=== PATIENT | male | born 1965 | race Caucasian/White ===

== ENCOUNTER 2016-08-10 18:50 | Inpatient (IN) | payer OTHER ==
[2016-08-10] MEDS ORDERED: Potassium Chlor TAB* 20 MEQ TAB.ER PO ONE (19:18)
[2016-08-10] MEDS ORDERED: KCL 20 MEQ/100 ML IVPREMIX* 20 MEQ/100 ML BAG IV ONE (19:20)
[2016-08-10] MEDS ORDERED: NS 0.9% 1000 ML* 1,000 ML IV ONE (19:21)
[2016-08-10] MEDS ORDERED: Acetaminophen TAB* 325 MG PO ONE (19:49)
[2016-08-10] MEDS ORDERED: Acetaminophen TAB* 325 MG ONE (19:52)
[2016-08-10 20:13] LABS: Magnesium 2.2 mg/dL (1.9-2.7)
[2016-08-10] MEDS ORDERED: Cyclobenzaprine TAB* 10 MG PO PRN (20:18)
[2016-08-10] MEDS ORDERED: Ibuprofen TAB* 800 MG PO PRN (20:18)
[2016-08-10 20:19] LABS: Troponin I 0.07 ng/mL (<0.04)
[2016-08-10] MEDS ORDERED: Heparin DRIP 25,000 UNITS(*) 25,000 UNITS/500 ML BAG IV SCH (20:30)
--- NOTE | 2016-08-10 20:33 | ED ---
La Suggs Erika, scribed for Cindy Hilario MD on 08/10/16 at 1935 . HPI Chest Pain - HPI Summary HPI Summary: Patient is a 51-year-old male presenting to the ED with a CC of chest pain. Patient reports that he has had chest pain intermittently for the past 2-3 days. he describes the pain as a pressure, and reports that it will be present for 2-3 minutes, and will then fully resolve. Pain is worse today. Associated symptoms include SOB, and this afternoon, patient developed a headache. Pt was seen at [facility] today and was sent to [facility] ED because his troponin, 0.07 today, was higher than that of a troponin drawn 3 years ago when he had similar symptoms. He also had an EKG done at [facility] today, which showed T wave inversions in the anterior lateral leads with infrequent PVCs. T wave inversions were new compared to an EKG done 09/2013. At [facility], his CBC was WNL. He had a slightly elevated BUN of 31, and a creatinine of 1.7. His potassium was slightly low at 3.0. AT 16:40, Pt was bradycardic at 45 bpm. Pt was given 4 ASA and hydralazine at [facility]. He had a chemical stress test 3 years ago. Hx HTN - takes clonidine. Hx pre-diabetes. Pt denies Hx hyperlipidemia. FHx - denies cardiac disease before the age of 56. Pt's father has a pacemaker. Denies FHx cardiac stents. Pt works at the [employer], and lives alone. He denies smoking, drinking, or illicit drug use. PCP Dr. Beaulieu. - History of Current Complaint Hx Obtained From: Patient, Medical Records - from [facility] Onset/Duration: Started Days Ago, Atraumatic, Still Present Timing: Intermittent Current Severity: Moderate Character: Pressure/Squeezing Associated Signs and Symptoms: Positive: Headaches, Shortness of Breath - Allergy/Home Medications Allergies/Adverse Reactions: Allergies Allergy/AdvReac Type Severity Reaction Status Date / Time No Known Allergies Allergy Verified 08/10/16 19:08 Home Medications: Home Medications Benazepril (NF) [Lotensin (NF)] 40 mg PO DAILY 08/10/16 [History Confirmed 08/10] Cyclobenzaprine TAB* [Flexeril TAB*] 10 mg PO TID PRN 08/10/16 [History Confirmed 08/10/16] Hydrochlorothiazide TAB* [Hydrodiuril TAB*] 12.5 mg PO BID 08/10/16 [History Confirmed 08/10/16] Ibuprofen TAB* [Motrin TAB* 800 MG] 800 mg PO Q6H PRN 08/10/16 [History Confirmed 08/10/16] Metoprolol Tartrate TAB* [Lopressor TAB*] 100 mg PO BID 08/10/16 [History Confirmed 08/10/16] Potassium Chlor TAB* [Klor Con ER TAB*] 10 meq PO DAILY 08/10/16 [History Confirmed 08/10/16] cloNIDine TAB* [Catapres TAB*] 0.1 mg PO BID 08/10/16 [History Confirmed ] hydrALAZINE TAB* [Apresoline TAB*] 50 mg PO DAILY 08/10/16 [History Confirmed ] PMH/Surg Hx/FS Hx/Imm Hx Cardiovascular History: Reports: Hx Hypertension - Surgical History Surgery Procedure, Year, and Place: L HIP SX, TONSILECTOMY, CHOLECYSTECTOMY, LAP BAND, BACK SX - Family History Family History: No ND before age of 55 - Social History Lives: Alone Alcohol Use: None Hx Substance Use: No Substance Use Type: Reports: None Hx Tobacco Use: No Smoking Status (MU): Never Smoked Tobacco Review of Systems Positive: Chest Pain Positive: Shortness Of Breath Positive: Headache All Other Systems Reviewed And Are Negative: Yes Physical Exam Triage Information Reviewed: Yes Vital Signs On Initial Exam: Temp Pulse Resp BP Pulse Ox 98.3 F 59 18 186/104 100 08/10/16 18:50 08/10/16 18:50 08/10/16 18:50 08/10/16 18:50 08/10/16 18:50 Vital Signs Reviewed: Yes Skin: Positive: Warm, Skin Color Reflects Adequate Perfusion, Dry Eyes: Positive: EOMI, FERMÍN ENT: Positive: Pharynx normal, TMs normal Neck: Positive: Supple, Nontender Respiratory/Lung Sounds: Positive: Clear to Auscultation, Breath Sounds Present. Negative: Rales, Rhonchi, Wheezes Cardiovascular: Positive: Bradycardia - at 59 bpm on triage, Other - No gallops. Negative: Murmur, Rub Abdomen Description: Positive: Nontender, Soft, Other: - No rebound. Negative: Distended, Guarding Bowel Sounds: Positive: Present Musculoskeletal: Positive: Other - FRANCES, no edema Neurological: Positive: Sensory/Motor Intact, Alert, Oriented to Person Place, Time, Other - CN II-XII intact Psychiatric: Positive: Affect/Mood Appropriate Diagnostics - Vital Signs Vital Signs Temp Pulse Resp BP Pulse Ox 08/10/16 18:50 98.3 F 59 18 186/104 100 - Laboratory Lab Results: Lab Results 08/10/16 Range/Units 19:15 Magnesium 2.2 (1.9-2.7) mg/dL Troponin I 0.07 H* (<0.04) ng/mL Lab Statement: Any lab studies that have been ordered have been reviewed, and results considered in the medical decision making process. - EKG 19:13 Cardiac Rate: Bradycardia - at 52 bpm EKG Rhythm: Sinus Bradycardia ST Segment: Non-Specific Ectopy: None EKG Interpretation: LVH EKG Comparison: No Significant Change - from [facility] EKG today, although no PVCs on this current EKG Chest Pain Course/Dx - Course Course Of Treatment: pt with htn and intermittent cp trop is at .07 and stable admitted to hospitalist - Diagnoses Provider Diagnoses: Chest pain - Provider Notifications Discussed Care Of Patient With: Dr. Jeffries (hospitalist) at 19:12 - agrees to admit Discharge - Discharge Plan Condition: Stable Disposition: ADMITTED TO [facility] The documentation as recorded by the La carrero Erika accurately reflects the service I personally performed and the decisions made by me, Cindy Hilario MD.
[2016-08-10] MEDS ORDERED: Heparin VIAL(*) 5000 UNITS/ML VIAL (FIVE THOUSAND) IV SCH (21:00)
[2016-08-10 22:13] LABS: Hematocrit 44 % (42-52); Hemoglobin 14.4 g/dl (14.0-18.0); Mean Corpuscular HGB Conc 33 g/dl (31-36); Mean Corpuscular Hemoglobin 29 pg (27-31); Mean Corpuscular Volume 87 fL (80-94); Mean Platelet Volume 10 um3 (7.4-10.4); Red Blood Count 4.99 10^6/ul (4.0-5.4); Red Cell Distribution Width 14 % (10.5-15); White Blood Count 9.5 10^3/ul (3.5-10.8)
[2016-08-10 22:38] LABS: Troponin I 0.07 ng/mL (<0.04)
[2016-08-10] MEDS: Ondansetron INJ* 2 MG/ML VIAL IV PRN (23:10)
[2016-08-10] MEDS: Acetaminophen TAB* 325 MG PO PRN (23:10)
[2016-08-10] MEDS: cloNIDine TAB* 0.1 MG PO SCH (23:11)
[2016-08-10] MEDS: Hydrochlorothiazide TAB* 25 MG PO SCH (23:12)
--- NOTE | 2016-08-11 00:19 | HP ---
HISTORY AND PHYSICAL: DATE OF ADMISSION: 08/10/16 CHIEF COMPLAINT: Chest pressure. HISTORY OF PRESENT ILLNESS: The patient is a 51-year-old gentleman who said the last 2 days he has been having on and off chest pressure. It is not related to exertion. It will come and go and last for a few minutes. At its worst, it is 6/10 to 7/10 in severity. It is in the center of his chest. It does hurt more though with a deep breath. He has got nothing for it. He has no sweating with it. He does have some shortness of breath and he says the shortness of breath is secondary to the pain he has been taking a deep breath. He went to his PCP today, where he had an EKG that showed him to be bradycardic and he was sent to the ER at [place], where he had lab work done and showed a troponin of 0.07. The patient also noted to have a significantly high blood pressure with the systolic in the 180s to 190s. PAST MEDICAL HISTORY: Significant for hypertension. PAST SURGICAL HISTORY: He has back surgery, left hip surgery, lap band, and cholecystectomy. CURRENT MEDICATIONS: 1. Hydralazine 50 mg daily. 2. Clonidine 0.1 mg twice daily. 3. Potassium chloride 10 mEq daily. 4. Metoprolol tartrate 100 mg twice daily. 5. Ibuprofen 800 mg every 6 hours as needed. 6. Hydrochlorothiazide 12.5 mg twice daily. 7. Flexeril 10 mg 3 times a day as needed. 8. Benazepril 40 mg daily. ALLERGIES: He has no known drug allergies. FAMILY HISTORY: Mother is alive at 73, alive and well. Father is alive at 73, had a pacemaker defibrillator placed. SOCIAL HISTORY: No tobacco. Social alcohol. No recreational drug use. 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 He is not . He has no children. He has a stepson. He does not have a health care proxy. REVIEW OF SYSTEMS: A 14-point review of systems is completed with the patient. All pertinent positives and negatives are in the history of present illness, otherwise it is negative. PHYSICAL EXAMINATION GENERAL: A pleasant gentleman, lying in bed, in no acute distress. VITAL SIGNS: Temperature 98.3 degrees, heart rate 59 beats per minute, respiratory rate 18 breaths per minute, pulse ox 100%, and blood pressure 186/ 104. HEENT: Normocephalic and atraumatic. Pupils are equal, round and reactive to light. Moist mucous membranes. NECK: Supple. No JVD, bruits, palpable thyroid, or lymphadenopathy. CHEST: Clear to auscultation and percussion bilaterally. CARDIOVASCULAR: S1, S2 appreciated. Regular rate and rhythm. ABDOMEN: Positive bowel sounds in all 4 quadrants. Soft, nontender, and nondistended. No hepatosplenomegaly. EXTREMITIES: No cyanosis, clubbing, or edema; +2 peripheral pulses bilaterally. NEUROLOGIC: Alert and oriented x3. Moves all extremities. SKIN: No rashes or abnormalities. DIAGNOSTIC STUDIES/LAB DATA: Sodium 138, potassium 3.0, chloride 98, CO2 30, BUN 31, creatinine 1.7, and glucose is 106. His AST is 45 and ALT 64. His troponin is 0.07. White count 8.89, hemoglobin 14.5, hematocrit 43.2, and platelets 193. Chest x-ray; I do not have results at this time. EKG shows sinus bradycardia at 53 beats per minute, normal axis, and ST depressions in V5, V6, I, and aVL. ASSESSMENT AND PLAN: 1. Unstable angina: The patient is having on and off chest pressure with a fairly decent story except for the fact that is somewhat pleuritic. He does have a significant history of hypertension. I will place him on a heparin drip. I will cycle his troponins. I will get a transthoracic echo. He may benefit from cardiology consult in the a.m. Nitroglycerin sublingual p.r.n. for chest pain. Also added aspirin. No beta blockade right now with his heart rate in the 50s. 2. Hypertension: Continue with current medications except for metoprolol and may have to adjust medications accordingly. Apparently, he is undergoing a workup for renal artery stenosis as an outpatient. 3. FEN: N.P.O. after midnight. 4. DVT prophylaxis: Heparin drip. 5. Code status: The patient is a full code. TIME SPENT: Over 75 minutes was spent on this H and P; more than 40 minutes of which was spent in direct [id number] contact with the patient, evaluation, physical exam, counseling, and coordination of care. CC: Dr. Jonathon Ball* [id number]/[facility] #: [id number] JOSH
[2016-08-11 00:39] LABS: Hematocrit 41 % (42-52); Hemoglobin 13.8 g/dl (14.0-18.0); Mean Corpuscular HGB Conc 33 g/dl (31-36); Mean Corpuscular Hemoglobin 29 pg (27-31); Mean Corpuscular Volume 88 fL (80-94); Mean Platelet Volume 10 um3 (7.4-10.4); Red Blood Count 4.72 10^6/ul (4.0-5.4); Red Cell Distribution Width 14 % (10.5-15)
[2016-08-11 00:56] LABS: Troponin I 0.08 ng/mL (<0.04)
[2016-08-11] MEDS ORDERED: Potassium Chlor TAB* 10 MEQ TAB.ER PO SCH (09:00)
[2016-08-11] MEDS ORDERED: hydrALAZINE TAB* 25 MG PO SCH ×2 (09:00→21:00)
--- NOTE | 2016-08-11 09:43 | CONSULT ---
Medications Active Medications: Acetaminophen (Tylenol Tab*) 650 mg PO Q4H PRN PRN Reason: FEVER/PAIN Last Admin: 08/10/16 23:10 Dose: 650 mg Aspirin (Aspirin Ec Low Dose*) 81 mg PO DAILY [facility] Clonidine HCl (Catapres Tab*) 0.1 mg PO BID [facility] Last Admin: 08/10/16 23:11 Dose: 0.1 mg Cyclobenzaprine HCl (Flexeril Tab*) 10 mg PO TID PRN PRN Reason: PAIN Heparin Sodium (Porcine) (Heparin Vial(*)) 0 units IV .PER PROTOCOL NIC PRN Reason: Protocol Hydralazine HCl (Apresoline Tab*) 50 mg PO DAILY [facility] Hydrochlorothiazide (Hydrodiuril Tab*) 12.5 mg PO BID [facility] Last Admin: 08/10/16 23:12 Dose: 12.5 mg Heparin Sodium/Dextrose (Heparin Drip 25,000 Units(*)) 25,000 units in 500 mls @ 0 mls/hr IV .NO INITIAL BOLUS [facility]; As Directed PRN Reason: Protocol Last Admin: 08/10/16 23:19 Dose: 29 mls/hr Ibuprofen (Motrin Tab*) 800 mg PO Q6H PRN PRN Reason: PAIN Lisinopril (Prinivil Tab*) 40 mg PO DAILY [facility] Ondansetron HCl (Zofran Inj*) 4 mg IV Q4H PRN PRN Reason: NAUSEA Last Admin: 08/10/16 23:10 Dose: 4 mg Potassium Chloride (Klor Con Er Tab*) 10 meq PO DAILY [facility] Home Medications: Benazepril (NF) [Lotensin (NF)] 40 mg PO DAILY 08/10/16 [History Confirmed 08/10] Cyclobenzaprine TAB* [Flexeril TAB*] 10 mg PO TID PRN 08/10/16 [History Confirmed 08/10/16] Hydrochlorothiazide TAB* [Hydrodiuril TAB*] 12.5 mg PO BID 08/10/16 [History Confirmed 08/10/16] Ibuprofen TAB* [Motrin TAB* 800 MG] 800 mg PO Q6H PRN 08/10/16 [History Confirmed 08/10/16] Metoprolol Tartrate TAB* [Lopressor TAB*] 100 mg PO BID 08/10/16 [History Confirmed 08/10/16] Potassium Chlor TAB* [Klor Con ER TAB*] 10 meq PO DAILY 08/10/16 [History Confirmed 08/10/16] cloNIDine TAB* [Catapres TAB*] 0.1 mg PO BID 08/10/16 [History Confirmed ] hydrALAZINE TAB* [Apresoline TAB*] 50 mg PO DAILY 08/10/16 [History Confirmed ] Review of Systems - Measurements Intake and Output: Intake and Output Last 24 Hours 08/09/16 08/10/16 08/11/16 08/12/16 06:59 06:59 06:59 06:59 Intake Total 0 Output Total 400 450 Balance -400 -450 Weight 300 lb 4.8 oz 300 lb 4.8 oz Intake: Oral 0 Output: Urine 400 450 Other: # Bowel Movements 0 # Voids 0 - Review of Systems Review of Systems Statement: All other review of systems negative, unless stated above. Objective Vital Signs: Temp Pulse Resp BP Pulse Ox 97.2 F 46 16 148/70 98 08/11/16 07:42 08/11/16 07:42 08/11/16 08:00 08/11/16 07:42 08/11/16 07:42 Laboratory Results: 08/11/16 00:27 08/11/16 00:27 APTT 52.7 seconds (26.0-36.3) H 08/11/16 07:18 08/10/16 08/11/16 21:57 00:27 Troponin I 0.07 H* 0.08 H*
[2016-08-11] MEDS ORDERED: Regadenoson* 0.4 MG/5 ML SYRINGE ONE (11:14)
[2016-08-11] MEDS ORDERED: Aminophylline IV* 25 MG/ML 10 ML VIAL ONE (11:14)
[2016-08-11] MEDS ORDERED: Ondansetron INJ* 2 MG/ML VIAL ONE (11:32)
[2016-08-11] MEDS: Ondansetron INJ* 2 MG/ML VIAL IV PRN (11:32)
[2016-08-11] MEDS ORDERED: Acetaminophen TAB* 325 MG ONE (12:03)
[2016-08-11] MEDS: Acetaminophen TAB* 325 MG PO PRN (12:06)
--- NOTE | 2016-08-11 15:01 | RAD ---
Edited for charges. Indication: Chest pain. Myocardial perfusion scan was performed utilizing 1 day protocol. 10.7 mCi of technetium 99m tetrofosmin was injected for the rest portion of the study. Pharmacological stress was applied and 25.08 mCi of technetium 99m tetrofosmin was injected for the stress portion of the study. There is homogeneous distribution of the radiotracer throughout the left ventricle. There is ventriculomegaly noted. There is thinning of the apex noted. There may be some mild reversible change at the apex. The ejection fraction at stress is 49%. Evaluation of wall motion demonstrates global hypokinesis. IMPRESSION: There may be some small reversible change at the apex. There is ventriculomegaly noted. Ejection fraction of 49%. ASSESSMENT: Intermediate risk Based on imaging criteria from ACC/AHA 2002 Guideline Update for the Management of Patients With Chronic Stable Angina Table 23. Noninvasive Risk Stratification. Oblique MTDD
--- NOTE | 2016-08-11 15:08 | ECHO ---
Patient: REGINALDO DALLAS [facility] Rec#: [id number] : 1965 Date: 08/11/2016 Age: 51y Height: 190.5 cm / 75.0 in Weight: 129.7 kg / 285.9 lbs Sex: M BSA: 2.55 Room#: [facility] Admit Date#: 08/10/2016 Type: Inpatient Referring: Jerzy Jeffries MD Reading: Dao Johnston MD Presiding Judge: Yara Morgan Presiding Judge: Yin Zabala RDCS CC: Jonathon Ball DO Transthoracic Echocardiogram Indication: ACS BP: 140/76 HR: 52 Rhythm: Bradycardia Findings History: HTN, nonsmoker, + family history. Technical Comments: The study quality is fair. Completed at 1351. Left Ventricle: The left ventricular chamber size is mildly dilated. Moderate concentric left ventricular hypertrophy is observed. Left ventricular systolic function is at the lower limits of normal. Visually estimated LVEF is 50 %. There is no consistent Doppler evidence of clinically significant diastolic dysfunction.Incomplete analysis as no valsalva manuever was performed. Left Atrium: The left atrium is mild to moderately dilated. Right Ventricle: The right ventricle is slightly dilated. The right ventricular global systolic function is normal. Right Atrium: The right atrial cavity size is normal. Aortic Valve: The aortic valve is trileaflet. The aortic valve leaflets are mildly thickened. There is no evidence of aortic regurgitation. There is no evidence of aortic stenosis. Mitral Valve: The mitral valve leaflets are mildly thickened. There is mild mitral regurgitation. There is no evidence of mitral stenosis. Tricuspid Valve: The tricuspid valve leaflets are normal. There is trace tricuspid regurgitation. There is no tricuspid stenosis. Pulmonic Valve: The pulmonic valve appears normal. There is a trace pulmonic regurgitation. There is no pulmonic stenosis. Pericardium: There is no significant pericardial effusion. A pericardial fat pad is visualized. Aorta: There is mild dilatation of the ascending aorta. There is moderate dilatation of the aortic arch. There is no dilation of the aortic root. Pulmonary Artery: The main pulmonary artery appears normal. Venous: The venous system is not well visualized. Conclusions The left ventricular chamber size is mildly dilated. Moderate concentric left ventricular hypertrophy is observed. Left ventricular systolic function is at the lower limits of normal. Visually estimated LVEF is 50 %. The left atrium is mild to moderately dilated. There is mild mitral regurgitation. There is trace tricuspid regurgitation. There is a trace pulmonic regurgitation. Measurements Name Value Normal Range RVIDd (AP) 2D 3.6 cm (0.9 - 2.6) RVDdMajor (2D) 4.5 cm (2.2 - 4.4) RAd ISD 4CH 4.7 cm (3.4 - 4.9) RA (A4C)W 3.4 cm (2.9 - 4.6) IVSd (2D) 1.9 cm (0.6 - 1) LVPWd (2D) 1.5 cm (0.6 - 1) LVIDd (2D) 5.7 cm (3.6 - 5.4) LVIDs (2D) 3.8 cm - LV FS (2D) 33 % (25 - 45) Aortic Annulus 2.2 cm (1.4 - 2.6) Ao root diameter (2D) 3.3 cm (2.1 - 3.5) Ascending Ao 3.9 cm (2.1 - 3.4) Aortic arch 4.3 cm (1.8 - 3.4) LA dimension (AP) 2D 5.2 cm (2.3 - 3.8) LAd ISD 4CH 5.9 cm (2.9 - 5.3) LA ISD 4CH W 5.6 cm (2.5 - 4.5) Name Value Normal Range LA ESV SP 4CH (A/L) 103 ml - LA ESV SP 2CH (A/L) 103 ml - LA ESV BP (A/L) 104 ml - LA ESV BP (A/L) index 40.7 ml/m2 - LA ESV SP 4CH (MOD) 102 ml - LA ESV SP 2CH (MOD) 96 ml - Name Value Normal Range MV E-wave Vmax 0.8 m/sec - MV deceleration time 319 msec - MV A-wave Vmax 0.8 m/sec - MV E:A ratio 0.99 ratio - LV septal e' Vmax 0.07 m/sec - LV lateral e' Vmax 0.06 m/sec - LV E:e' septal ratio 11.4 ratio - LV E:e' lateral ratio 13.3 ratio - Name Value Normal Range AV Vmax 1.9 m/sec - AV VTI 39.6 cm - AV peak gradient 14.22 mmHg - AV mean gradient 7.49 mmHg - LVOT Vmax 1.1 m/sec - LVOT VTI 23 cm - LVOT peak gradient 4.87 mmHg - LVOT mean gradient 2.5 mmHg - Name Value Normal Range TR Vmax 2.1 m/sec - TR peak gradient 17 mmHg - RAP 8 mmHg - RVSP 25 mmHg - Name Value Normal Range PV Vmax 1 m/sec - PV peak gradient 4.11 mmHg -
[2016-08-11] MEDS: cloNIDine TAB* 0.1 MG PO SCH ×2 (15:30→20:57)
[2016-08-11] MEDS: Aspirin EC Low Dose* 81 MG TAB.EC PO SCH (15:30)
[2016-08-11] MEDS: Hydrochlorothiazide TAB* 25 MG PO SCH ×2 (15:30→20:56)
[2016-08-11] MEDS: Lisinopril TAB* 10 MG PO SCH (15:31)
[2016-08-11 16:20] LABS: EGFR African American 67.9 (>60); EGFR Non-African American 52.8 (>60)
--- NOTE | 2016-08-11 17:22 | PN ---
Subjective Date of Service: 08/11/16 Interval History: Pt SBP was >200 after he came back from stress test. his meds were held prior to stress. no c/o CP since admission. Has h/o intermittent chest pressure and SOB that was not exercise related Objective Active Medications: Acetaminophen (Tylenol Tab*) 650 mg PO Q4H PRN PRN Reason: FEVER/PAIN Last Admin: 08/11/16 12:06 Dose: 650 mg Aspirin (Aspirin Ec Low Dose*) 81 mg PO DAILY [facility] Last Admin: 08/11/16 15:30 Dose: 81 mg Clonidine HCl (Catapres Tab*) 0.1 mg PO BID [facility] Last Admin: 08/11/16 15:30 Dose: 0.1 mg Cyclobenzaprine HCl (Flexeril Tab*) 10 mg PO TID PRN PRN Reason: PAIN Hydralazine HCl (Apresoline Tab*) 10 mg PO TID [facility] Hydrochlorothiazide (Hydrodiuril Tab*) 12.5 mg PO BID [facility] Last Admin: 08/11/16 15:30 Dose: 12.5 mg Lisinopril (Prinivil Tab*) 40 mg PO DAILY [facility] Last Admin: 08/11/16 15:31 Dose: 40 mg Ondansetron HCl (Zofran Inj*) 4 mg IV Q4H PRN PRN Reason: NAUSEA Last Admin: 08/11/16 11:32 Dose: 4 mg Vital Signs 08/10/16 08/10/16 08/10/16 20:58 20:59 22:32 Temperature 97.2 F 97.2 F Pulse Rate 51 54 Respiratory 16 16 16 Rate Blood Pressure 169/96 169/96 (mmHg) O2 Sat by Pulse 100 100 Oximetry 08/10/16 08/10/16 08/11/16 23:37 23:42 03:32 Temperature 98.7 F Pulse Rate 44 Respiratory 16 16 16 Rate Blood Pressure 140/76 (mmHg) O2 Sat by Pulse 97 Oximetry 08/11/16 08/11/16 08/11/16 07:42 08:00 14:42 Temperature 97.2 F 97.6 F Pulse Rate 46 50 Respiratory 16 16 14 Rate Blood Pressure 148/70 202/96 (mmHg) O2 Sat by Pulse 98 96 Oximetry 08/11/16 15:48 Temperature 97.4 F Pulse Rate 53 Respiratory 17 Rate Blood Pressure 175/84 (mmHg) O2 Sat by Pulse 98 Oximetry Oxygen Devices in Use Now: None Appearance: 51 yo M in nAd, aAOx3 Eyes: No Scleral Icterus, PERRLA Ears/Nose/Mouth/Throat: NL Teeth, Lips, Gums, Mucous Membranes Moist Neck: NL Appearance and Movements; NL JVP, Trachea Midline Respiratory: Symmetrical Chest Expansion and Respiratory Effort, Clear to Auscultation Cardiovascular: NL Sounds; No Murmurs; No JVD, RRR Abdominal: NL Sounds; No Tenderness; No Distention Lymphatic: No Cervical Adenopathy Extremities: No Edema, No Clubbing, Cyanosis Skin: No Rash or Ulcers, No Nodules or Sclerosis Neurological: Alert and Oriented x 3, NL Muscle Strength and Tone Result Diagrams: 08/11/16 00:27 08/11/16 00:27 Additional Lab and Data: Lab Results 08/10/16 Range/Units 19:15 Magnesium 2.2 (1.9-2.7) mg/dL Troponin I 0.07 H* (<0.04) ng/mL Assess/Plan/Problems-Billing Assessment: 51 yo M with h/o uncontrolled HTN and CKD(unknown stage ) presents with episodes of CP and SBP 190, trop 0.08. - Patient Problems (1) Chest pain Comment: Troponin flat at 0.08. stress test showed EF 49% and possible reversible ischemia and thinning of the apex. Echo shows md LVH, EF 50% appreciate Dr. Johnston's consult. No convincing evidence of ischemia on stress. Pt has had uncontroled HTN x several years- the chest pressure may be a symptom of high BP (2) HTN (hypertension) Comment: Uncontrolled. will change hydralazine to 10 mg TID. hold lopressor due to bradycardia. Cont lower dose of clonidine and possibly d/c it in AM. May be able to restart BB once clonidine is discontinued. (3) CKD (chronic kidney disease) Comment: unknown baseline. Pt is aware of having "kidney problems". Creat was at 1.7, today at 1.4 D/w pt to stop taking NSAIDS due to CKD and HTN. (4) DVT prophylaxis Comment: heparin sc Status and Disposition: inpatient
--- NOTE | 2016-08-11 20:35 | CONS ---
CC: Dr. Jonathon Ball, [facility] CARDIOLOGY CONSULTATION: DATE OF CONSULT: 08/11/2016 REASON FOR CONSULT: The patient transferred over with severe poorly controlled hypertension and chest discomfort and abnormal troponin, assess for possible acute coronary syndrome. HISTORY OF PRESENT ILLNESS: The patient is a pleasant 51-year-old gentleman who interestingly has a cardiac history that dates back to 2002 when he apparently underwent a cardiac catheterization which was found to be normal. I do not have any of these reports as this was done in [place]. He was normally followed by Dr. Keshia Clement Jr., MD, in [place], [place] (telephone number [phone], fax number [phone]), who was his labor/excavator. He was watching him for essential hypertension, moderate left ventricular hypertrophy, and abnormal cardiac testing with an abnormal EKG. He has long- standing history of essential hypertension. His EKG has had anterolateral ST segment changes that were felt to be due to LVH with strain. The patient moved to [facility] some 3 to 4 years ago. He has been doctoring with both Dr. Brantley at [facility] and more recently with Dr. Ball for working on control of his blood pressure. He states that he had been doing reasonably well with no specific symptoms up until this past Sunday. On Sunday of this week, he saw the nurse practitioner in Dr. Ball' office and the patient's blood pressure was elevated and as such, the clonidine was increased to 0.2 mg twice a day. By the next day , he noted the onset of symptoms of a chest heavy sensation and difficulty catching his breath that interestingly started when he was just sitting at his desk the next day. It lasted 2 to 3 minutes and then would go away. He periodically noted this feeling. Only once that he had it while he was walking and more interestingly, he did not have it at all going up and down the steps at home. Yesterday, he was going to deliver some urine sample in part of the workup for his kidney disease and he was scheduled to have renal ultrasound scans done today, Sunday, over in [facility]. He complained to the doctor in the doctor's office that he felt groggy with flu-like symptoms and no energy and they did an EKG and decided to send him over to the hospital as the EKG was abnormal with left ventricular hypertrophy and strain pattern noted. He was sent to the emergency room at [facility]. The EKG there again showed the left ventricular hypertrophy with strain pattern with one PVC and a bradycardic rate of 55. Blood tests were drawn and revealed an abnormal troponin of 0.07. The MB was 3.0 and the MB index was only 1.1. The total CPK was elevated at 261. His SGOT was 45 and SGPT was 64. His BUN and creatinine were 31 and 1.7. His hemoglobin and hematocrit were 14.5 and 43.2 with a platelet count of 193,000. The decision was made to send him over to [facility] for the abnormal troponin value. Of note, he was sent over and subsequent troponin samples were drawn at 1915, at 2151, and at 12:27 a.m. The results were 0.07, 0.07, and 0.08. No significant rise or fall was noted. There was no CPK or MB on the samples. Two more BUNs were drawn of 28 and 26 and a magnesium of 2.2, but no other blood work has been ordered. Cardiac evaluation done thus far included an echocardiogram which revealed moderate concentric left ventricular hypertrophy with low normal ejection fraction of 50%, [id number] left atrial enlargement with mild mitral regurgitation, trace tricuspid regurgitation, and trace pulmonic regurgitation. Diastolic function analysis was incomplete with no Valsalva maneuver. There was moderate dilatation of the aortic arch and mild dilatation of the ascending aorta. He underwent a Lexiscan stress test for which the EKG was uninterpretable for ischemia giving the baseline abnormalities. There was mild accentuation of the baseline changes which are uninterpretable given the left ventricular hypertrophy. Nuclear images failed to show any significant perfusion abnormalities, but quoted a question of apical thinning. There was some question of maybe mild reversible change at the apex. The ejection fraction was quoted at 49%. In reviewing the patient's past cardiac history and information gleaned from Dr. Clement's office, an echocardiogram with an exercise stress echo was performed back in 2009. At that time, the resting echo was interpreted as having mild concentric left ventricular hypertrophy with an EF of 55% to 60% with a mild-to- moderately dilated left atrium without mitral regurgitation with only trace pulmonic regurgitation. The stress test showed appropriate increased contractility to all areas of the ventricle with exercise. The patient more recently had an echocardiogram performed on 06/24/12 which revealed there to be quoted severe concentric left ventricular hypertrophy with EF of 55% to 60% with reported grade 2 diastolic dysfunction. The left atrium was felt to be slightly enlarged. As far as Doppler analysis, there was no quote of the mitral valve as to the presence or absence of regurgitation or the tricuspid or pulmonic. The aortic valve was commented not to have any aortic stenosis or regurgitation. Currently, when I see the patient in the hospital, he states that ever being admitted, he has had no further symptoms and of note, his clonidine has been decreased to 0.1 mg twice a day and his current medications do not include the metoprolol which has been placed on hold because of the bradycardia that was noted. PAST MEDICAL HISTORY: History of chronic hypertension. He denies any history of diabetes. He denies any history of increased cholesterol. He does not smoke and he has a father who is alive at 73 who had a pacemaker defibrillator placed. He denies any known history of early coronary artery disease. PAST SURGICAL HISTORY: Includes back surgery, left hip surgery, Lap-Band surgery, and cholecystectomy. MEDICATIONS: At home, had included: 1. Metoprolol tartrate 100 mg twice a day. 2. Hydrochlorothiazide 12.5 mg twice a day. 3. Clonidine 0.2 mg twice a day, recently increased. 4. Potassium 10 mEq a day. 5. Benazepril 40 mg a day and he was supposed to start on hydralazine 50 mg a day, but he had not filled that prescription as of yet. 6. He also was taking a baby aspirin once a day. 7. He was on Flexeril p.r.n. for pain, but has not been using it recently. 8. He was on ibuprofen, but again has also not been using it recently. Medications now here in the hospital include: 1. Aspirin 81 mg a day. 2. Clonidine decreased to 0.1 mg twice a day. 3. Hydralazine 50 mg once a day. 4. Hydrochlorothiazide 12.5 mg twice a day. 5. Lisinopril 40 mg a day. 6. Potassium 10 mEq a day. 7. Zofran for nauseousness. Of note, he has been n.p.o. since the whole day long waiting on the stress test and only just got his medications when I am seeing him in consult. SOCIAL HISTORY: He does not smoke. He drinks alcohol socially. He does not use illicit drugs. He is not . REVIEW OF SYSTEMS: As per the H and P with no additional changes. PHYSICAL EXAM: When I see him now reveals a pleasant obese gentleman in no acute distress. Vital signs currently when I saw him before he got his medications included a blood pressure 202/96 with a pulse of 50, respirations 14 , afebrile, O2 saturation 96% on room air. Neck is supple. There is no increased JVP. Carotid has good upstroke and volume without bruits. Conjunctivae are pink. Sclerae clear. Lungs reveal no accessory muscle usage. He has good excursion. Lungs are relatively clear to A and P. Heart reveals no visible heaves. No palpable heaves or thrills. Normal S1, S2. There is a prominent S4 gallop. There is a faint systolic murmur. No significant diastolic murmur. Abdomen is obese, soft, nontender. Extremities are without clubbing, cyanosis, or melissa pitting edema. The femoral pulses and distal pulses were intact. Femoral pulses without bruits. Neuro: The patient is alert , oriented with normal mentation. Musculoskeletal: The patient moves all extremities appropriately. Psychological: The patient with normal affect. DIAGNOSTIC STUDIES/LAB DATA: Reports from the hospital thus far: EKG on admission from 08/10/16, time 1912, reveals sinus bradycardia, heart rate 52, normal MT interval, QRS interval slightly prolonged at 0.12. [place] is normal. There is left ventricular hypertrophy and strain pattern noted. Repeat EKG done at 10:10 a.m. shows similar findings with mild downsloping ST segments in I , II, aVL, minimally in III, and V5 and V6. OVERALL ASSESSMENT: Cirilo now presents with what appears to be left ventricular hypertrophy with strain pattern on EKG with flat troponin values that did not show any up and down pattern suggestive of an acute coronary syndrome. I am concerned that with the increased clonidine to 0.2 mg twice a day, he may have had further significant bradycardia with his 100 mg b.i.d. of metoprolol tartrate that may have provoked symptoms especially at rest when his heart rate could drop low enough and make him feel short of breath until he started potentially moving around to get his heart rate higher. At this point in time, I believe the most important issue would be control of his blood pressure without dropping his pulse rate too low. His clonidine is being weaned down. He is now at 0.1 mg b.i.d. and most likely, consideration to get him off that completely and work just with metoprolol might be a better approach. An alternative could be to switch him from the metoprolol tartrate to Coreg and get him increasing to high doses of Coreg as blood pressure tolerates. We need to follow his creatinine carefully as it appeared to be abnormal yesterday at [facility], but I see no laboratory results from today. We will order a BMP for first thing tomorrow morning to follow this trend along and we will adjust management pending the results of slowly changing his medication route. Obviously, we have many drugs we can work with as he is currently getting hydralazine on a once a day basis when it may make more sense to split it out 3 times a day. We will follow him along and make ultimate decisions whether or not a catheterization is needed after checking CPK and MBs on the troponin samples thus far getting his blood pressure controlled and watching his creatinine. A scan of his kidneys might be appropriate as well continuing the workup on his renal insufficiency. If kidneys are normal size, he may benefit from backing off his diuretic as his BUN was 30 in [facility] yesterday. I will work along with you in adjusting medications. Thank you very much for asking us to see him. We will follow him with you. [id number]/[facility] #: [id number] JOSH
[2016-08-11] MEDS: Heparin VIAL(*) 5000 UNITS/ML VIAL (FIVE THOUSAND) SUBCUT SCH (20:58)
[2016-08-12] MEDS: Heparin VIAL(*) 5000 UNITS/ML VIAL (FIVE THOUSAND) SUBCUT SCH ×3 (05:30→20:24)
[2016-08-12] MEDS: cloNIDine TAB* 0.1 MG PO SCH (07:52)
[2016-08-12] MEDS: Lisinopril TAB* 10 MG PO SCH (07:52)
[2016-08-12] MEDS: hydrALAZINE TAB* 10 MG PO SCH ×3 (07:53→20:26)
[2016-08-12] MEDS: Hydrochlorothiazide TAB* 25 MG PO SCH ×2 (07:53→20:26)
[2016-08-12] MEDS: Aspirin EC Low Dose* 81 MG TAB.EC PO SCH (07:53)
[2016-08-12 08:01] LABS: BUN/Creatinine Ratio 13.8 (8-20); Calcium 9.4 mg/dL (8.6-10.3); EGFR African American 70.1 (>60); EGFR Non-African American 54.5 (>60)
[2016-08-12] MEDS ORDERED: Potassium Chlor TAB* 20 MEQ TAB.ER PO ONE (09:26)
--- NOTE | 2016-08-12 12:51 | PN ---
Subjective Date of Service: 08/12/16 Interval History: Pt feels well. Denies CP, SBP in 150's Objective Active Medications: Acetaminophen (Tylenol Tab*) 650 mg PO Q4H PRN PRN Reason: FEVER/PAIN Last Admin: 08/11/16 12:06 Dose: 650 mg Aspirin (Aspirin Ec Low Dose*) 81 mg PO DAILY [facility] Last Admin: 08/12/16 07:53 Dose: 81 mg Carvedilol (Coreg Tab*) 12.5 mg PO BID [facility] Cyclobenzaprine HCl (Flexeril Tab*) 10 mg PO TID PRN PRN Reason: PAIN Heparin Sodium (Porcine) (Heparin Vial(*)) 5,000 units SUBCUT Q8HR [facility] Last Admin: 08/12/16 05:30 Dose: 5,000 units Hydralazine HCl (Apresoline Tab*) 10 mg PO TID [facility] Last Admin: 08/12/16 07:53 Dose: 10 mg Hydrochlorothiazide (Hydrodiuril Tab*) 12.5 mg PO BID [facility] Last Admin: 08/12/16 07:53 Dose: 12.5 mg Lisinopril (Prinivil Tab*) 40 mg PO DAILY [facility] Last Admin: 08/12/16 07:52 Dose: 40 mg Ondansetron HCl (Zofran Inj*) 4 mg IV Q4H PRN PRN Reason: NAUSEA Last Admin: 08/11/16 11:32 Dose: 4 mg Vital Signs 08/11/16 08/11/16 08/11/16 14:42 15:48 17:25 Temperature 97.6 F 97.4 F Pulse Rate 50 53 57 Respiratory 14 17 Rate Blood Pressure 202/96 175/84 165/85 (mmHg) O2 Sat by Pulse 96 98 Oximetry 08/11/16 08/11/16 08/11/16 20:00 20:08 23:24 Temperature 98.3 F 98.2 F Pulse Rate 63 51 Respiratory 16 16 16 Rate Blood Pressure 156/70 159/79 (mmHg) O2 Sat by Pulse 97 97 Oximetry 08/12/16 08/12/16 08/12/16 03:19 07:30 08:00 Temperature 98.4 F 97.3 F Pulse Rate 49 48 Respiratory 16 16 16 Rate Blood Pressure 153/67 187/87 (mmHg) O2 Sat by Pulse 98 96 Oximetry 08/12/16 09:52 Temperature Pulse Rate 63 Respiratory Rate Blood Pressure 154/68 (mmHg) O2 Sat by Pulse 97 Oximetry Oxygen Devices in Use Now: None Appearance: 51 yo M in nAd, aAOx3 Eyes: No Scleral Icterus, PERRLA Ears/Nose/Mouth/Throat: NL Teeth, Lips, Gums, Mucous Membranes Moist Neck: NL Appearance and Movements; NL JVP, Trachea Midline Respiratory: Symmetrical Chest Expansion and Respiratory Effort, Clear to Auscultation Cardiovascular: NL Sounds; No Murmurs; No JVD, RRR Abdominal: NL Sounds; No Tenderness; No Distention, No Hepatosplenomegaly Lymphatic: No Cervical Adenopathy Extremities: No Edema, No Clubbing, Cyanosis Skin: No Rash or Ulcers, No Nodules or Sclerosis Neurological: Alert and Oriented x 3, NL Muscle Strength and Tone Result Diagrams: 08/11/16 00:27 08/12/16 07:35 Additional Lab and Data: Lab Results 08/10/16 Range/Units 19:15 Magnesium 2.2 (1.9-2.7) mg/dL Troponin I 0.07 H* (<0.04) ng/mL Assess/Plan/Problems-Billing Assessment: 51 yo M with h/o uncontrolled HTN and CKD(unknown stage ) presents with episodes of CP and SBP 190, trop 0.08. - Patient Problems (1) Chest pain Comment: Troponin flat at 0.08. stress test showed EF 49% and possible reversible ischemia and thinning of the apex. Echo shows md LVH, EF 50% appreciate Dr. Johnston's consult. No convincing evidence of ischemia on stress. Pt has had uncontroled HTN x several years- the chest pressure may be a symptom of high BP (2) HTN (hypertension) Comment: Under better control. cont hydralazine to 10 mg TID. clonidine replaced with Coreg. (3) CKD (chronic kidney disease) Comment: unknown baseline. Pt is aware of having "kidney problems". Creat was at 1.7, today at 1.38 D/w pt to stop taking NSAIDS due to CKD and HTN. check renal US (4) DVT prophylaxis Comment: heparin sc Status and Disposition: inpatient
[2016-08-12] MEDS: Carvedilol TAB* 6.25 MG PO SCH ×2 (17:55→20:14)
[2016-08-13] MEDS: Heparin VIAL(*) 5000 UNITS/ML VIAL (FIVE THOUSAND) SUBCUT SCH ×3 (06:10→21:39)
[2016-08-13 07:14] LABS: BUN/Creatinine Ratio 17.2 (8-20); Calcium 9.6 mg/dL (8.6-10.3); EGFR African American 72.6 (>60); EGFR Non-African American 56.4 (>60); Potassium 3.2 mmol/L (3.5-5.0)
[2016-08-13] MEDS: Carvedilol TAB* 6.25 MG PO SCH (07:46)
[2016-08-13] MEDS: Aspirin EC Low Dose* 81 MG TAB.EC PO SCH (07:47)
[2016-08-13] MEDS: Lisinopril TAB* 10 MG PO SCH (07:47)
[2016-08-13] MEDS: hydrALAZINE TAB* 10 MG PO SCH ×4 (07:48→20:41)
[2016-08-13] MEDS: Hydrochlorothiazide TAB* 25 MG PO SCH ×2 (07:48→20:43)
[2016-08-13] MEDS ORDERED: Potassium Chlor TAB* 20 MEQ TAB.ER PO ONE (07:51)
[2016-08-13] MEDS ORDERED: Carvedilol TAB* 6.25 MG PO ONE (08:00)
[2016-08-13] MEDS ORDERED: hydrALAZINE TAB* 10 MG PO SCH (09:17)
--- NOTE | 2016-08-13 11:02 | RAD ---
INDICATION: Severe uncontrolled hypertension. Assess for renal artery stenosis. COMPARISON: None. TECHNIQUE: Multiple longitudinal and transverse sonographic images of the kidneys and renal arteries were obtained including color Doppler and spectral analysis. REPORT: Peak systolic velocity in the aorta measures 125 cm/s. Right kidney measures 11.4 x 6.4 x 5.9 cm. Cortical echogenicity is normal. No stones, focal lesions, or hydronephrosis noted. Resistive indices measure up to 0.66. The ostium and proximal segments of the RIGHT renal artery could not be visualized due to body habitus and bowel gas. The peak visualized systolic velocity within the right renal artery measures 80 cm/s at the mid segment. The renal to aortic ratio is 0.64. Left kidney measures 12.6 x 6.4 x 5.5 cm. 4.7 cm exophytic simple cortical cyst lower pole LEFT kidney. Cortical echogenicity is normal. No stones, focal lesions, or hydronephrosis noted. Resistive indices measure up to 0.76. The ostium of the LEFT renal artery could not be visualized due to body habitus and bowel gas. The peak visualized systolic velocity within the right renal artery measures 72 cm/s at the mid segment. The renal to aortic ratio is 0.57. COMMENT: Limited exam due to bowel gas and body habitus as described. No detected renal artery stenosis. Correlate with clinical assessment and consider CT or MRI angiogram for further assessment if deemed appropriate.
--- NOTE | 2016-08-13 17:01 | PN ---
Subjective Date of Service: 08/13/16 Interval History: no new complaints. BP elevated today Objective Active Medications: Acetaminophen (Tylenol Tab*) 650 mg PO Q4H PRN PRN Reason: FEVER/PAIN Last Admin: 08/11/16 12:06 Dose: 650 mg Aspirin (Aspirin Ec Low Dose*) 81 mg PO DAILY [facility] Last Admin: 08/13/16 07:47 Dose: 81 mg Carvedilol (Coreg Tab*) 18.75 mg PO BID [facility] Cyclobenzaprine HCl (Flexeril Tab*) 10 mg PO TID PRN PRN Reason: PAIN Heparin Sodium (Porcine) (Heparin Vial(*)) 5,000 units SUBCUT Q8HR [facility] Last Admin: 08/13/16 15:11 Dose: 5,000 units Hydralazine HCl (Apresoline Tab*) 20 mg PO TID [facility] Last Admin: 08/13/16 15:14 Dose: 20 mg Hydrochlorothiazide (Hydrodiuril Tab*) 12.5 mg PO BID [facility] Last Admin: 08/13/16 07:48 Dose: 12.5 mg Lisinopril (Prinivil Tab*) 40 mg PO DAILY [facility] Last Admin: 08/13/16 07:47 Dose: 40 mg Ondansetron HCl (Zofran Inj*) 4 mg IV Q4H PRN PRN Reason: NAUSEA Last Admin: 08/11/16 11:32 Dose: 4 mg Vital Signs 08/12/16 08/12/16 08/12/16 18:52 20:00 23:23 Temperature 98.2 F 98.2 F Pulse Rate 67 58 Respiratory 18 16 16 Rate Blood Pressure 169/70 (mmHg) O2 Sat by Pulse 99 97 Oximetry 08/13/16 08/13/16 08/13/16 03:27 07:11 08:00 Temperature 97.5 F 98.0 F Pulse Rate 56 55 Respiratory 20 18 18 Rate Blood Pressure 175/85 158/77 (mmHg) O2 Sat by Pulse 97 96 Oximetry 08/13/16 08/13/16 09:13 11:07 Temperature 98.2 F Pulse Rate 72 66 Respiratory 18 Rate Blood Pressure 180/90 164/88 (mmHg) O2 Sat by Pulse 94 Oximetry Oxygen Devices in Use Now: None Appearance: 51 yo M in NAD, AAOx3 Eyes: No Scleral Icterus, PERRLA Ears/Nose/Mouth/Throat: NL Teeth, Lips, Gums, Mucous Membranes Moist Neck: NL Appearance and Movements; NL JVP, Trachea Midline Respiratory: Symmetrical Chest Expansion and Respiratory Effort, Clear to Auscultation Cardiovascular: NL Sounds; No Murmurs; No JVD, RRR Abdominal: NL Sounds; No Tenderness; No Distention, No Hepatosplenomegaly Lymphatic: No Cervical Adenopathy Extremities: No Edema, No Clubbing, Cyanosis Skin: No Rash or Ulcers, No Nodules or Sclerosis Neurological: Alert and Oriented x 3, NL Muscle Strength and Tone Result Diagrams: 08/11/16 00:27 08/13/16 06:43 Additional Lab and Data: Lab Results 08/10/16 Range/Units 19:15 Magnesium 2.2 (1.9-2.7) mg/dL Troponin I 0.07 H* (<0.04) ng/mL Assess/Plan/Problems-Billing Assessment: 51 yo M with h/o uncontrolled HTN and CKD(unknown stage ) presents with episodes of CP and SBP 190, trop 0.08. - Patient Problems (1) Chest pain Comment: Troponin flat at 0.08. stress test showed EF 49% and possible reversible ischemia and thinning of the apex. Echo shows md LVH, EF 50% appreciate Dr. Johnston's consult. No convincing evidence of ischemia on stress. Pt has had uncontroled HTN x several years- the chest pressure may be a symptom of high BP (2) HTN (hypertension) Comment: Under better control. increase hydralazine to 20 mg TID and titrate up Coreg. Renal artery dopplers are unremarkable will check plasma renin and aldosterone levels in AM (pt needs to be up x 2 hrs and sitting up x at least 10 min prior to draw) (3) CKD (chronic kidney disease) Comment: unknown baseline. Pt is aware of having "kidney problems". Creat was at 1.7, today at 1.34 D/w pt to stop taking NSAIDS due to CKD and HTN. (4) DVT prophylaxis Comment: heparin sc Status and Disposition: inpatient
[2016-08-13] MEDS ORDERED: Carvedilol TAB* 6.25 MG PO SCH (21:00)
[2016-08-14] MEDS: Heparin VIAL(*) 5000 UNITS/ML VIAL (FIVE THOUSAND) SUBCUT SCH ×3 (05:31→13:46)
[2016-08-14] MEDS: Acetaminophen TAB* 325 MG PO PRN ×2 (05:33→13:36)
[2016-08-14 06:13] LABS: BUN/Creatinine Ratio 15.4 (8-20); Calcium 9.9 mg/dL (8.6-10.3); EGFR African American 71.3 (>60); EGFR Non-African American 55.5 (>60); Potassium 3.4 mmol/L (3.5-5.0)
[2016-08-14] MEDS ORDERED: Potassium Chlor TAB* 20 MEQ TAB.ER PO ONE (08:43)
[2016-08-14] MEDS ORDERED: Carvedilol TAB* 25 MG PO SCH (09:00)
[2016-08-14] MEDS: hydrALAZINE TAB* 10 MG PO SCH (09:21)
[2016-08-14] MEDS: Hydrochlorothiazide TAB* 25 MG PO SCH (09:21)
[2016-08-14] MEDS: Aspirin EC Low Dose* 81 MG TAB.EC PO SCH (09:21)
[2016-08-14] MEDS: Lisinopril TAB* 10 MG PO SCH (09:21)
[2016-08-14] MEDS ORDERED: hydrALAZINE TAB* 10 MG PO ONE (12:45)
[2016-08-14] MEDS ORDERED: hydrALAZINE TAB* 10 MG PO SCH (14:00)
[2016-08-14 16:29] VITALS: BP 168/88
--- NOTE | 2016-08-15 08:02 | DS ---
DISCHARGE SUMMARY: DATE OF ADMISSION: 08/10/16 DATE OF DISCHARGE: 08/14/16 PRIMARY CARE PROVIDER: Dr. Ball. FOREST NURSERY WORKER: Dr. Johnston. CROP SETTING OUT MACHINE OPERATOR: Dr. Boudreaux. DISCHARGE DIAGNOSES: 1. Chest pain with troponin of 0.08 and basically unremarkable cardiac stress test. Suspicion is that the chest pain is related to uncontrolled hypertension. 2. Uncontrolled hypertension. 3. Hypokalemia, which in light of uncontrolled hypertension rises suspicion for hyperaldosteronism. SECONDARY DIAGNOSES: 1. History of cardiac catheterization in 2002, which noted coronary arteries as "unremarkable." 2. History of hypertension. 3. History of chronic kidney disease, stage 3. 4. History of back surgery. 5. History of laparoscopic gastric band for obesity. 6. Cholecystectomy. 7. Left hip surgery. MEDICATIONS: At discharge include: 1. Aspirin 81 mg daily. 2. Benazepril 40 mg daily. 3. Coreg 25 mg b.i.d. 4. Flexeril 10 mg t.i.d. p.r.n. 5. Hydrochlorothiazide 12.5 mg b.i.d. 6. Potassium chloride 20 mEq daily. 7. Hydralazine 40 mg 3 times a day. LABORATORY DATA AND STUDIES PERFORMED DURING THE HOSPITAL STAY: Included, on , sodium of 133, potassium 3.4, chloride 100, carbon dioxide 29, BUN 21, creatinine 1.66. On 08/11/16, white blood cell count of 10.0, hemoglobin of 13.8, hematocrit of 41. Troponin was maximum at 0.08. The patient's troponins overall were 0.07 on presentation and second one was 0.07, third one was 0.08, and the fourth one was 0.06. Transthoracic echocardiogram obtained on 08/10/16 showed moderate concentric LVH with EF of 50% with mild mitral regurgitation and trace tricuspid regurgitation and trace pulmonic regurgitation. Cardiac stress test obtained on 08/11/16, the nuclear part of the stress test was read as "the ejection fraction of 49%. Evaluation of wall motion demonstrated global hypokinesis. There may be some small reversible change at the apex. There was ventriculomegaly noted. Ejection fraction is 49%. It was assessed at intermediate risk." Renal artery Dopplers noted on 08/13/16, impression: "Limited exam due to bowel gas and body habitus as described. No detected renal artery stenosis. Correlate with clinical assessment and consider CT or MR angiogram for further assessment if deemed appropriate." CONSULTATIONS: During the hospital stay included Dr. Johnston from Cardiology. HOSPITALIZATION COURSE: Cirilo Koch is a 51-year-old male with history of hypokalemia and hypertension, who had been recently evaluated by his primary care physician for chronic kidney disease and uncontrolled hypertension. He came into the hospital on 08/10/16 complaining of chest pressure. The pressure was not related to exercise. It did not have aggravating or alleviating factors , apart from that, he usually was markedly hypertensive when it happens. On his admission to the hospital, his systolic pressures were in the 180s. Due to the patient's troponins being at 0.07 to 0.08, Dr. Johnston was consulted from Cardiology, and transthoracic echocardiogram and stress test were performed as recommended. Please refer to further reports as above. Shortly, there was no clear-cut evidence of marked ischemia on the cardiac stress test, although there were questionable changes. The patient's EKG did show ST depressions in leads V4 to V6, but they were not dynamic. At this point, the impression from the cardiology group was that most likely the patient suffers from symptoms of hypertension that caused the chest pressure. The patient was observed and monitored on telemetry monitored bed for the next 3 days with an attempt to control his blood pressure. His clonidine was discontinued. He was restarted on hydralazine that was titrated and increased in frequency. The patient also was placed on Coreg and titrated up. Nevertheless, his pressures continue to be in 160s on the day of discharge. Due to his hypokalemia and uncontrolled hypertension for several years, serum aldosterone level and serum renin level was obtained on the day of discharge and those results are still pending. I also discussed the case with Dr. Boudreaux from Nephrology. The patient is going to be seen by Dr. Boudreaux as outpatient. It is recommended for the patient to have a 24-hour urine for creatinine and creatinine clearance as well as sodium gathered. He already received the container for sampling the urine at discharge. Prior to the patient's discharge, we also obtained spot urine creatinine and spot urine sodium that is still pending at the time of dictation. Due to the patient's consistent hypokalemia, I will place him on increased potassium supplement on a daily basis and recommended repeat basic metabolic panel in 2 to 3 days. At discharge, the patient is recommended to follow up with Dr. Ball in approximately 4 to 7 days. The patient is to call Dr. Boudreaux's office to schedule an appointment. The patient is also recommended to follow up with Dr. Johnston in approximately 1 month. PHYSICAL EXAMINATION: At the time of discharge, blood pressure of 168/88, heart rate of 74 and regular, respiratory rate 18, oxygen saturation 96% on room air, and temperature 98.7. General: This is a very pleasant 51-year-old obese male, who is in no acute distress. Awake, alert, and oriented x3. HEENT : Head is atraumatic, normocephalic. Eyes: Pupils are equal, reactive to light and accommodation. Oropharynx clear. Mucosa moist. Neck is supple. No JVD. No bruit bilaterally. Cardiovascular: Regular rate and rhythm. No murmur. Respiratory: Clear to auscultation bilaterally. Abdomen: Soft, nontender. Bowel sounds present in all 4 quadrants. Extremities: There is no edema, +2 pulses bilaterally. No clubbing or cyanosis. Psychiatric Evaluation : Pleasant, cooperative with evaluation with no evidence of anxiety or depression. Please also note that during his hospital stay, the patient did not have recurrence of his chest pressure. Please note that this is a short summary of the patient's hospital stay. Please refer to full medical records for details. TIME SPENT: Approximately 40 minutes was spent on the patient's discharge. CC: Dr. Johnston; Dr. Boudreaux; Dr. Ball* [id number]/[facility] #: [id number] [facility]
[2016-08-17 16:10] LABS: Renin 0.7 ng/mL/h
== END 2016-08-14 17:25 | disposition home or self-care (01) | DRG 305 ==
LOC: ED 18:50 → MEDTELE 19:18 → OBSVTOIN 20:23
PROVIDERS: ADMIT Internal Medicine; ATTEND Internal Medicine
DX: I16.0 Hypertensive urgency (principal); N18.3 Chronic kidney disease, stage 3 (moderate); I12.9 Hypertensive chronic kidney disease with stage 1 through stage 4 chronic kidney disease, or unspecified chronic kidney disease; E87.6 Hypokalemia; Z98.84 Bariatric surgery status; Z79.1 Long term (current) use of non-steroidal anti-inflammatories (NSAID); Z79.899 Other long term (current) drug therapy; Z95.810 Presence of automatic (implantable) cardiac defibrillator
CPT/HCPCS: 36415; 78452; 80048; 82088; 82550; 82553; 82565; 82570; 83735; 84244; 84300; 84484; 84520; 85025; 85730; 93005; 93017; 93306; 93975; A9270-GY; A9502; J0280; J1644; J2405; J2785; J3480